=== PATIENT | female | born 1945 | race Caucasian/White ===

== ENCOUNTER 2016-11-24 21:24 | Emergency (ER) | payer OTHER ==
[~2016-11-24 21:24] MED LIST: ASPIR-LOW81 MG PO; COUMADIN5 MG PO; GLUCOPHAGE500 MG PO; LEVAQUIN500 MG PO; LORATADINE10 MG PO; LOVASTATIN40 MG PO; LOVENOX120 MG/0.8 SQ; METOPROLOL TART25 MG PO; NEURONTIN600 MG PO; PERCOCET 10-321 EACH PO; PRINIVIL20 MG PO; PROTONIX40 MG PO; REGLAN10 MG PO; ZOLOFT100 MG PO
== END 2016-11-24 23:04 | disposition home or self-care (01) ==
LOC: ER 21:24
DX: L53.8 Other specified erythematous conditions (principal); R21 Rash and other nonspecific skin eruption; I25.2 Old myocardial infarction; J45.909 Unspecified asthma, uncomplicated; E78.5 Hyperlipidemia, unspecified; Z90.710 Acquired absence of both cervix and uterus; Z79.82 Long term (current) use of aspirin; Z79.84 Long term (current) use of oral hypoglycemic drugs; Z79.899 Other long term (current) drug therapy; Z88.5 Allergy status to narcotic agent; Z88.1 Allergy status to other antibiotic agents; Z88.0 Allergy status to penicillin; Z88.2 Allergy status to sulfonamides
CPT/HCPCS: 36415